=== PATIENT | female | born 2000 | race Caucasian/White ===

== ENCOUNTER 2020-07-17 19:33 | Outpatient (CLI) | payer OTHER ==
[~2020-07-17] VITALS: Ht 170.2 cm; Wt 82.6 kg
[2020-07-17 19:54] VITALS: BP 135/77
[2020-07-17] MEDS ORDERED: PRENTAB9 PO (19:58)
[2020-07-17] MEDS ORDERED: MAPA500T2 PO (19:58)
== END 2020-07-17 20:48 | disposition home or self-care (01) ==
LOC: EDSEX → M LDO 19:33
DX: O47.1 False labor at or after 37 completed weeks of gestation (principal); Z3A.39 39 weeks gestation of pregnancy
CPT/HCPCS: 59025; G0378; G0463